=== PATIENT | female | born 1995 | race Two or more races ===

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

== ENCOUNTER 2017-05-01 18:59 | Emergency (ER) | payer OTHER ==
--- NOTE | 2017-05-01 19:58 | RAD ---
INDICATION: Cough COMPARISON: None TECHNIQUE: PA and lateral dual-energy views were obtained. FINDINGS: Bones/Soft Tissues: There are no acute bony findings. Cardiomediastinal: The cardiomediastinal silhouette is normal. Lungs: There are no infiltrates. Pleura: There are no pleural effusions. Other: None IMPRESSION: NORMAL STUDY.
[2017-05-01 20:44] VITALS: BP 105/62
--- NOTE | 2017-05-02 03:55 | ED ---
Luba Torres Edward, scribed for Ariadna Beach MD on 05/01/17 at 1921 . Respiratory - HPI Summary HPI Summary: 21 y/o female presents to the ED c/o nonproductive cough for the past week. Pt states she feels like there is something there when she coughs but that it can' t get out. Denies fevers/chills. Denies sick contact. Pt was seen 4 days ago in the ED and given prednisone and an inhaler. Pt states these did not alleviate her symptoms. No relevant PMHx, Sx. Pt is a smoker. Associated sx: intermittent ear ache, CP with cough. - History of Current Complaint Chief Complaint: EDUpperRespComplaint Stated Complaint: CONGESTION/COUGH Hx Obtained From: Patient Onset/Duration: Lasting Days, Still Present Timing: Intermittent Episodes Lasting: - cough Character: Cough (Nonproductive) Sputum Amount: None Aggravating Factor(s): Nothing Alleviating Factor(s): Nothing Associated Signs and Symptoms: Chest Pain with Cough - Allergy/Home Medications Allergies/Adverse Reactions: Allergies Allergy/AdvReac Type Severity Reaction Status Date / Time No Known Allergies Allergy Verified 05/01/17 19:08 PMH/Surg Hx/FS Hx/Imm Hx Previously Healthy: No Endocrine/Hematology History: Denies: Hx Diabetes, Hx Thyroid Disease Cardiovascular History: Denies: Hx Hypertension, Hx Pacemaker/ICD Respiratory History: Reports: Hx Asthma - WHEN YOUNGER Denies: Hx Chronic Obstructive Pulmonary Disease (COPD) GI History: Denies: Hx Ulcer Sensory History: Denies: Hx Hearing Aid Psychiatric History: Denies: Hx Panic Disorder Infectious Disease History: No Infectious Disease History: Denies: Hx Hepatitis, Hx Human Immunodeficiency Virus (HIV), History Other Infectious Disease, Traveled Outside the [place] in Last 30 Days - Family History Known Family History: Positive: None, Hypertension, Diabetes Family History: negative for family hx of glaucoma,vision defecits - Social History Alcohol Use: None Substance Use Type: Reports: Marijuana Substance Use Comment - Amount & Last Used: occasional Smoking Status (MU): Never Smoked Tobacco Review of Systems Constitutional: Negative Eyes: Negative Positive: Ear Ache Positive: Chest Pain - with cough Positive: Cough Gastrointestinal: Negative Genitourinary: Negative Musculoskeletal: Negative Skin: Negative Neurological: Negative Psychological: Normal All Other Systems Reviewed And Are Negative: No Physical Exam - Summary Physical Exam Summary: Appearance: Alert, conversive, nontoxic appearing Skin: Warm, dry, no mottling, no rashes, no contusions HEENT: EOMI, PERRL, moist mucous membranes Neck: No masses on the neck, supple Respiratory: Clear to auscultation, breath sounds present, no rales, no rhonchi , no wheezes Cardiovascular: RRR, pulses are symmetrical in both lower and upper extremities Abdomen: Soft, non-tender Bowel Sounds: Present Musculoskeletal: No CVA tenderness, no obvious deformity, moving all extremities in a grossly normal manner Neurological: A&Ox3, CN II-XII Intact, moving all extremities symmetrically Psychiatric: Normal affect and mood Triage Information Reviewed: Yes Vital Signs On Initial Exam: Initial Vitals Temp Pulse Resp BP Pulse Ox 97.9 F 59 18 118/42 99 05/01/17 19:05 05/01/17 19:05 05/01/17 19:05 05/01/17 19:05 05/01/17 19:05 Vital Signs Reviewed: Yes Diagnostics - Vital Signs Vital Signs Temp Pulse Resp BP Pulse Ox 05/01/17 19:05 97.9 F 59 18 118/42 99 - Laboratory Lab Statement: Any lab studies that have been ordered have been reviewed, and results considered in the medical decision making process. - Radiology CXR Xray Interpretation: No Acute Changes Radiology Interpretation Completed By: Radiologist - ED physician reviews and agrees Re-Evaluation - Re-Evaluation 1 Re-Evaluation Time: 20:26 Comment: Discuss CXR results, plan to d/c Disposition - Course Assessment/Plan: 21 y/o female presents to the ED c/o nonproductive cough for the past week. Pt states she feels like there is something there when she coughs but that it can't get out. Denies fevers/chills. Denies sick contact. Pt was seen 4 days ago in the ED and given prednisone and an inhaler. Pt states these did not alleviate her symptoms. No relevant PMHx, Sx. Pt is a smoker. Associated sx: intermittent ear ache, CP with cough. CXR negative. - Diagnoses Provider Diagnoses: Bronchitis Discharge - Discharge Plan Condition: Stable Disposition: HOME Patient Education Materials: Acute Bronchitis (ED) Referrals: Magdaleno Duque NP [Primary Care Provider] - 3 Days Additional Instructions: Continue to take the steroids as previously instructed. Use the inhaler and spacer as instructed. return if worse or any new symptoms. It is important to follow up with your primary care physician. Take tylenol or motrin for pain. The documentation as recorded by the Luba samano Edward accurately reflects the service I personally performed and the decisions made by , Ariadna Beach MD.
== END 2017-05-01 20:43 | disposition home or self-care (01) ==
LOC: ED 18:59
DX: J40 Bronchitis, not specified as acute or chronic (principal); R05 Cough; R07.9 Chest pain, unspecified; H92.09 Otalgia, unspecified ear
CPT/HCPCS: 71020; 99282

== ENCOUNTER 2017-09-01 13:00 | Emergency (ER) | payer OTHER ==
[2017-09-01] MEDS ORDERED: Ondansetron TAB* 4 MG PO ONE (13:18)
--- NOTE | 2017-09-01 13:24 | UC ---
UC General HPI - HPI Summary HPI Summary: 22 yo BF c/o nausea and crampy diarrhea associated with chills and left periumbilical pain since last night. Has a houseguest with a dx of gastroenteritis last night,with n/v/d. Denies URI sx - History of Current Complaint Chief Complaint: UCGI Stated Complaint: NAUGSEA,DIZZY Time Seen by Provider: 09/01/17 13:11 Hx Obtained From: Patient Hx Last Menstrual Period: 08/27/17 Onset/Duration: Sudden Onset Onset Severity: Severe Current Severity: Moderate Pain Intensity: 5 - Allergy/Home Medications Allergies/Adverse Reactions: Allergies Allergy/AdvReac Type Severity Reaction Status Date / Time No Known Allergies Allergy Verified 09/01/17 13:08 PMH/Surg Hx/FS Hx/Imm Hx Previously Healthy: Yes - Surgical History Surgical History: None - Family History Known Family History: Positive: None, Hypertension, Diabetes Family History: negative for family hx of glaucoma,vision defecits - Social History Alcohol Use: Occasionally Substance Use Type: Marijuana Substance Use Comment - Amount & Last Used: regularly Smoking Status (MU): Never Smoked Tobacco Review of Systems Constitutional: Chills Skin: Negative Eyes: Negative ENT: Negative Respiratory: Negative Cardiovascular: Negative Gastrointestinal: Abdominal Pain, Diarrhea, Nausea Genitourinary: Negative Motor: Negative Neurovascular: Negative Musculoskeletal: Negative Neurological: Negative Psychological: Negative All Other Systems Reviewed And Are Negative: Yes Physical Exam Triage Information Reviewed: Yes Vital Signs: Initial Vital Signs Temp 36.1 C 09/01/17 13:03 Pulse 72 09/01/17 13:03 Resp 16 09/01/17 13:03 BP 135/82 09/01/17 13:03 Pulse Ox 98 09/01/17 13:03 Vital Signs Reviewed: Yes Eye Exam: Normal ENT Exam: Normal ENT: Positive: Pharynx normal Dental Exam: Normal Neck exam: Normal Neck: Positive: 1 Respiratory Exam: Normal Cardiovascular Exam: Normal Abdomen Description: Positive: Soft, CVA Tenderness (L), Other: - left upper and lower wanda-umbilical tenderness. Negative: Distended, Guarding Musculoskeletal Exam: Normal Neurological Exam: Normal Psychological Exam: Normal Skin Exam: Normal Skin: Positive: Other Course/Dx - Course Course Of Treatment: rapid strep and rapid flu negative. Current sx likely due to virally mediated gastroenteritis. PO hydration, PO zofran and continue supportive tx - Differential Dx - Multi-Symptom Provider Diagnoses: viral gastroenteritis Discharge - Discharge Plan Condition: Stable Disposition: HOME Prescriptions: Ondansetron TAB* [Zofran 4 MG Tab*] 4 mg PO Q6H PRN 3 Days #12 tab PRN Reason: Nausea Patient Education Materials: Gastroenteritis (ED), Viral Syndrome (ED) Referrals: No Primary Care Phys,NOPCP [Primary Care Provider] - Additional Instructions: Keep hydrated, take immodium over the counter if diarrhea continues, take zofran as directed for nausea
[2017-09-01] MEDS ORDERED: Ondansetron ODT TAB* 4 MG PO ONE (13:34)
[2017-09-01 15:15] VITALS: BP 117/80
== END 2017-09-01 15:14 | disposition home or self-care (01) ==
LOC: UCEAST 13:00
DX: A08.4 Viral intestinal infection, unspecified (principal)
CPT/HCPCS: 87502; 87651; 99212; A9270-GY; G0463

== ENCOUNTER 2018-03-02 21:51 | Emergency (ER) | payer OTHER ==
[2018-03-02 22:01] VITALS: BP 136/87
--- NOTE | 2018-03-02 22:02 | UC ---
Abdominal Pain Female HPI - HPI Summary HPI Summary: 22 yo female presents with RLQ pain that began suddenly about 4 hours ago. Since that time pain has increased from a 2/10 to a 7/10 and she has developed nausea. She also notes that over the last few days she has had loose stools and diarrhea. Denies fever, chills, vomiting, dysuria, vaginal discharge, or chance of . - History of Current Complaint Chief Complaint: UCAbdominalPain Stated Complaint: ABDOMINAL PAIN Time Seen by Provider: 03/02/18 22:02 Hx Obtained From: Patient Hx Last Menstrual Period: February 06, 2018 Onset/Duration: Sudden Onset Severity Initially: Moderate Severity Currently: Moderate Pain Intensity: 7 Pain Scale Used: 0-10 Numeric Allergies/Adverse Reactions: Allergies Allergy/AdvReac Type Severity Reaction Status Date / Time No Known Allergies Allergy Verified 03/02/18 21:56 PMH/Surg Hx/FS Hx/Imm Hx - Additional Past Medical History Additional PMH: None - Surgical History Surgical History: None - Family History Known Family History: Positive: None, Hypertension, Diabetes Family History: negative for family hx of glaucoma,vision defecits - Social History Occupation: Employed Full-time Lives: With Family Alcohol Use: Occasionally Substance Use Type: None Substance Use Comment - Amount & Last Used: occasional Smoking Status (MU): Never Smoked Tobacco Type: Smokeless Tobacco Review of Systems Constitutional: Negative Skin: Negative Respiratory: Negative Cardiovascular: Negative Gastrointestinal: Abdominal Pain, Nausea Genitourinary: Negative Neurovascular: Negative Neurological: Negative Psychological: Negative All Other Systems Reviewed And Are Negative: Yes Physical Exam - Summary Physical Exam Summary: GENERAL: NAD. WDWN. No pain distress. SKIN: No rashes, sores, lesions, or open wounds. NECK: Supple. Nontender. No lymphadenopathy. CHEST: CTAB. No r/r/w. No accessory muscle use. Breathing comfortably and in no distress. CV: RRR. Without m/r/g. Pulses intact. Cap refill <2seconds ABDOMEN: Moderate TTP RLQ. Positive psoas sign. Positive heel strike. Negative rovsings. Soft. No distention or guarding. No CVA tenderness. Bowel sounds present NEURO: Alert. PSYCH: Age appropriate behavior. Triage Information Reviewed: Yes Vital Signs: Initial Vital Signs Temp 97.4 F 03/02/18 21:54 Pulse 80 03/02/18 21:54 Resp 18 03/02/18 21:54 BP 136/87 03/02/18 21:54 Pulse Ox 95 03/02/18 21:54 Vital Signs Reviewed: Yes Abd Pain Female Course/Dx - Course Course Of Treatment: Her symptoms are concerning for appendicitis - therefore I have advised the pt to be more appropriately evaluated in the ED. Pt declined ambulance and her friend with her today will drive her tonight. - Differential Dx/Diagnosis Provider Diagnoses: RLQ pain. Nausea Discharge - Sign-Out/Discharge Documenting (check all that apply): Patient Departure All imaging exams completed and their final reports reviewed: No Studies - Discharge Plan Condition: Stable Disposition: HOME-RECOMMEND TO ED Referrals: No Primary Care Phys,NOPCP [Primary Care Provider] - Additional Instructions: Please go to the ER for further evaluation of your RLQ pain and nausea. - Billing Disposition and Condition Condition: STABLE Disposition: Home-Recommend to ED
== END 2018-03-02 22:11 | disposition home health service (06) ==
LOC: UCEAST 21:51
DX: R10.31 Right lower quadrant pain (principal); R11.0 Nausea
CPT/HCPCS: 99212; G0463

== ENCOUNTER 2018-03-02 22:29 | Emergency (ER) | payer OTHER ==
[2018-03-02] MEDS ORDERED: Ondansetron INJ* 2 MG/ML VIAL IV PRN (23:06)
[2018-03-02] MEDS ORDERED: Morphine VIAL* 10 MG/ML 1 ML VIAL IV ONE (23:06)
[2018-03-02] MEDS ORDERED: NS 0.9% 1000 ML* 1,000 ML IV ONE (23:06)
--- NOTE | 2018-03-02 23:36 | ED ---
Abdominal Pain/Female - HPI Summary HPI Summary: Patient sent from urgent care to ED for further evaluation of right lower quadrant pain 2 hours, with associated nausea, no vomiting. Abdominal pain described as sharp, 9 out of 10, constant. Denies prior history of same pain. Denies fever, cough, sore throat, CP, SOB, V/D, change in urine, vaginal symptoms. Medical history is none. Abdominal/pelvic surgical history is none. LMP 02/06. Patient uses protection. - History of Current Complaint Chief Complaint: EDAbdPain Stated Complaint: LOWER RT ABD PAIN Time Seen by Provider: 03/02/18 22:53 Hx Obtained From: Patient Hx Last Menstrual Period: February 06, 2018 ?: No Onset/Duration: Sudden Onset Timing: Constant Severity Initially: Moderate Severity Currently: Moderate Pain Intensity: 7 Pain Scale Used: 0-10 Numeric Location: Discrete At: RLQ Radiates: No Character: Sharp Aggravating Factor(s): Nothing Alleviating Factor(s): Nothing Associated Signs and Symptoms: Positive: Decreased Appetite, Nausea Allergies/Adverse Reactions: Allergies Allergy/AdvReac Type Severity Reaction Status Date / Time No Known Allergies Allergy Verified 03/02/18 21:56 Home Medications: Home Medications NK [No Home Medications Reported] 03/03/18 [History Confirmed 03/03/18] PMH/Surg Hx/FS Hx/Imm Hx Endocrine/Hematology History: Denies: Hx Diabetes, Hx Thyroid Disease Cardiovascular History: Denies: Hx Hypertension, Hx Pacemaker/ICD Respiratory History: Reports: Hx Asthma - WHEN YOUNGER Denies: Hx Chronic Obstructive Pulmonary Disease (COPD) GI History: Denies: Hx Ulcer History: Denies: Hx Dialysis Sensory History: Denies: Hx Hearing Aid Neurological History: Denies: Hx CVA Psychiatric History: Denies: Hx Panic Disorder Infectious Disease History: No Infectious Disease History: Denies: Hx Hepatitis, Hx Human Immunodeficiency Virus (HIV), History Other Infectious Disease, Traveled Outside the [place] in Last 30 Days - Family History Known Family History: Positive: None, Hypertension, Diabetes Family History: negative for family hx of glaucoma,vision defecits - Social History Alcohol Use: Occasionally Substance Use Type: Reports: None Substance Use Comment - Amount & Last Used: occasional Smoking Status (MU): Never Smoked Tobacco Type: Smokeless Tobacco Review of Systems Constitutional: Negative Eyes: Negative ENT: Negative Cardiovascular: Negative Respiratory: Negative Positive: Abdominal Pain, Nausea Genitourinary: Negative Musculoskeletal: Negative Skin: Negative Neurological: Negative Psychological: Normal All Other Systems Reviewed And Are Negative: Yes Physical Exam - Summary Physical Exam Summary: Tender to palpation right lower quadrant. Abdomen otherwise normal exam. Triage Information Reviewed: Yes Vital Signs On Initial Exam: Initial Vitals Temp Pulse Resp BP Pulse Ox 97.7 F 60 18 134/75 95 03/02/18 22:34 03/02/18 22:34 03/02/18 22:34 03/02/18 22:34 03/02/18 22:34 Vital Signs Reviewed: Yes Appearance: Positive: Well-Appearing Skin: Positive: Warm Head/Face: Positive: Normal Head/Face Inspection Eyes: Positive: Normal Neck: Positive: Supple Respiratory/Lung Sounds: Positive: Clear to Auscultation Cardiovascular: Positive: Normal Abdomen Description: Positive: Other: Musculoskeletal: Positive: Normal Neurological: Positive: Normal Psychiatric: Positive: Normal AVPU Assessment: Alert - Kennedy Coma Scale Best Eye Response: 4 - Spontaneous Best Motor Response: 6 - Obeys Commands Best Verbal Response: 5 - Oriented Coma Scale Total: 15 Diagnostics - Vital Signs Vital Signs Temp Pulse Resp BP Pulse Ox 03/02/18 23:00 57 95 03/02/18 22:48 62 137/76 94 03/02/18 22:34 97.7 F 60 18 134/75 95 - Laboratory Result Diagrams: 03/02/18 23:48 03/02/18 23:48 Lab Statement: Any lab studies that have been ordered have been reviewed, and results considered in the medical decision making process. - Ultrasound No standard instances Ultrasound Interpretation: No Acute Changes - US TV neg for torsion Ultrasound Interpretation Completed By: Radiologist Abdominal Pain Fem Course/Dx - Course Course Of Treatment: Patient sent from urgent care to ED for further evaluation of right lower quadrant pain 2 hours, with associated nausea, no vomiting. Abdominal pain described as sharp, 9 out of 10, constant. Denies prior history of same pain. Denies fever, cough, sore throat, CP, SOB, V/D, change in urine, vaginal symptoms. Medical history is none. Abdominal/pelvic surgical history is none. LMP 8/20. Patient uses protection. Physical exam:Tender to palpation right lower quadrant. Abdomen otherwise normal exam. Vital signs normal. Labs unremarkable. Ultrasound transvaginal negative. Not . CT abdomen and pelvis negative. - Diagnoses Provider Diagnoses: Abdominal pain Discharge - Sign-Out/Discharge Documenting (check all that apply): Sign-Out Patient Signing out patient TO: Mark Cisneros - Discharge Plan Condition: Good Disposition: HOME Patient Education Materials: Acute Abdominal Pain (ED) Referrals: Care [facility] [Outside] - Billing Disposition and Condition Condition: GOOD Disposition: Home
[2018-03-03 00:25] LABS: EGFR Non-African American 70.7 (>60)
[2018-03-03 00:28] LABS: ABS Basophils 0.1 10^3/ul (0-0.2); ABS Eosinophils 0.1 10^3/ul (0-0.6); ABS Lymphocytes 2.2 10^3/ul (1.0-4.8); ABS Monocytes 0.5 10^3/ul (0-0.8); ABS Neutrophils 2.4 10^3/ul (1.5-7.7); ABS Nucleated RBC 0 10^3/ul; Eosinophil % 1.5 % (0-6); Hematocrit 38 % (35-47); Hemoglobin 12.7 g/dl (12.0-16.0); Lymphocyte % 41.2 % (25-47); Mean Corpuscular HGB Conc 33 g/dl (31-36); Mean Corpuscular Hemoglobin 27 pg (27-31); Mean Corpuscular Volume 82 fL (80-97); Mean Platelet Volume 8.7 um3 (7.4-10.4); Nucleated Red Blood Cells % 0.1; Platelet Count 300 10^3/ul (150-450); Red Cell Distribution Width 13 % (10.5-15); White Blood Count 5.2 10^3/ul (3.5-10.8)
[2018-03-03] MEDS ORDERED: Iohexol 300* (CONTRAST) 10 ML SDV IV ONE (00:37)
--- NOTE | 2018-03-03 00:55 | RAD ---
EXAM: US Pelvis, Transvaginal CLINICAL HISTORY: 22 years old, female; Pain; Pelvic pain; Additional info: Sudden onset constnat rlq pain, torsion? TECHNIQUE: Real-time transvaginal pelvic ultrasound (complete) with image documentation. Transvaginal imaging was used for better evaluation of the endometrium and adnexa. COMPARISON: No relevant prior studies available. FINDINGS: Uterus/cervix: Uterus measures 7.6 x 3.3 x 2.9 cm. Endometrium measures 3.1 mm. No myometrial mass. Right ovary: Right ovary measures 4.0 x 3.0 x 2.3 cm. Dominant cyst present measuring 1.8 x 1.6 x 1.6 cm. Normal blood flow. Left ovary: Left ovary measures 1.9 x 1.4 x 1.3 cm. Normal blood flow. Free fluid: No free fluid. Bladder: Empty bladder which cannot be evaluated with this probe. IMPRESSION: 1. Right ovarian cyst. 2. Otherwise normal pelvic ultrasound. Specifically, no sonographic findings of torsion.
[2018-03-03 01:07] LABS: Urine Appearance Clear; Urine Blood Negative (Negative); Urine Color Yellow; Urine Ketones Trace (Negative); Urine Protein Negative (Negative); Urine Specific Gravity 1.025 (1.010-1.030); Urine Urobilinogen Negative (Negative)
[2018-03-03] MEDS ORDERED: Ondansetron ODT TAB* 4 MG PO ONE (02:06)
--- NOTE | 2018-03-03 03:06 | RAD ---
EXAM: CT Abdomen and Pelvis With Intravenous Contrast CLINICAL HISTORY: 22 years old, female; Pain; Abdominal pain; Localized; Right lower quadrant (rlq); Additional info: Rlq pain TECHNIQUE: Axial computed tomography images of the abdomen and pelvis with intravenous contrast. All CT scans at this facility use at least one of these dose optimization techniques: automated exposure control; mA and/or kV adjustment per patient size (includes targeted exams where dose is matched to clinical indication); or iterative reconstruction. Coronal and sagittal reformatted images were created and reviewed. CONTRAST: 130 mL of omni administered intravenously. COMPARISON: TRANS US TRANSVAGINAL 03/02/2018 11:22 PM FINDINGS: Lung bases: Unremarkable. No mass. No consolidation. ABDOMEN: Liver: Diffuse fatty infiltration of liver. Gallbladder and bile ducts: Unremarkable. No calcified stones. No ductal dilation. Pancreas: Unremarkable. No mass. No ductal dilation. Spleen: Unremarkable. No splenomegaly. Adrenals: Unremarkable. No mass. Kidneys and ureters: Unremarkable. No solid mass. No hydronephrosis. Stomach and bowel: Unremarkable. No obstruction. No mucosal thickening. PELVIS: Appendix: No findings to suggest acute appendicitis. Bladder: Unremarkable. No mass. Reproductive: Dominant follicle versus cyst in the right ovary measuring 14 x 15 x 18 mm. The uterus and left ovary are unremarkable. ABDOMEN and PELVIS: Intraperitoneal space: Unremarkable. No free air. No significant fluid collection. Bones/joints: No acute fracture. No dislocation. Soft tissues: Unremarkable. Vasculature: Unremarkable. No abdominal aortic aneurysm. Lymph nodes: Unremarkable. No enlarged lymph nodes. IMPRESSION: No acute findings. Dominant follicle versus cyst in the right ovary measuring 14 x 15 x 18 mm.
--- NOTE | 2018-03-03 03:22 | ED ---
Course/Dx - Course Course Of Treatment: Patient sent from urgent care to ED for further evaluation of right lower quadrant pain 2 hours, with associated nausea, no vomiting. Abdominal pain described as sharp, 9 out of 10, constant. Denies prior history of same pain. Denies fever, cough, sore throat, CP, SOB, V/D, change in urine, vaginal symptoms. Medical history is none. Abdominal/pelvic surgical history is none. LMP 8/20. Patient uses protection. Physical exam:Tender to palpation right lower quadrant. Abdomen otherwise normal exam. Vital signs normal. Labs unremarkable. Ultrasound transvaginal negative. Not . - Diagnoses Provider Diagnoses: Abdominal pain Discharge - Sign-Out/Discharge Documenting (check all that apply): Patient Departure - Discharge Plan Condition: Good Disposition: HOME Patient Education Materials: Acute Abdominal Pain (ED) Referrals: [facility] [Outside] - Billing Disposition and Condition Condition: GOOD Disposition: Home
--- NOTE | 2018-03-03 03:24 | ED ---
Progress - Results/Orders Results/Orders: CT A/P: No acute findings. Dominant follicle versus cyst in the right ovary measuring 14 x [address] Cisneros has reviewed this report. Course/Dx - Course Course Of Treatment: Patient sent from urgent care to ED for further evaluation of right lower quadrant pain 2 hours, with associated nausea, no vomiting. Abdominal pain described as sharp, 9 out of 10, constant. Denies prior history of same pain. Denies fever, cough, sore throat, CP, SOB, V/D, change in urine, vaginal symptoms. Medical history is none. Abdominal/pelvic surgical history is none. LMP 02/06. Patient uses protection. Physical exam:Tender to palpation right lower quadrant. Abdomen otherwise normal exam. Vital signs normal. Labs unremarkable. Ultrasound transvaginal negative. Not . - Diagnoses Provider Diagnoses: Abdominal pain Discharge - Sign-Out/Discharge Documenting (check all that apply): Patient Departure - discharge, Receiving Sign-Out Receiving patient FROM: Misael Noriega - Discharge Plan Condition: Good Disposition: HOME Patient Education Materials: Acute Abdominal Pain (ED) Referrals: [facility] [Outside] - Attestation Statements Document Initiated by Scribe: Yes Documenting Scribe: Lefty Chapa Provider For Whom Scribe is Documenting (Include Credential): Dr. Mark Cisneros MD Scribe Attestation: Lefty Torres scribed for Dr. Mark Cisneros MD on 03/03/18 at 0326.
[2018-03-03] MEDS ORDERED: Acetaminophen TAB* 325 MG ONE (03:38)
[2018-03-03 03:43] VITALS: BP 122/74
== END 2018-03-03 03:41 | disposition home or self-care (01) ==
LOC: ED 22:29
DX: R10.31 Right lower quadrant pain (principal)
CPT/HCPCS: 36415; 74177; 76830; 80053; 81003; 83690; 84702; 85025; 86140; 96374; 99283; A9270-GY; J2270; J2405; Q9967

== ENCOUNTER 2018-03-05 02:41 | Emergency (ER) | payer OTHER ==
[2018-03-05] MEDS ORDERED: Naproxen TAB* 250 MG PO ONE (03:10)
--- NOTE | 2018-03-05 03:22 | ED ---
Abdominal Pain/Female - HPI Summary HPI Summary: This patient is a 22 year old F presenting to [facility] with a chief complaint of RLQ abdominal pain since 3 days ago. The patient was seen at [facility] on 03/02/18 with similar symptoms. The patient reports that her symptoms have not worsened since she was discharged. The patient rates the pain 8/10 in severity. Symptoms aggravated by nothing. Symptoms alleviated by nothing. Patient reports fever, nausea, headache, myalgia, and dizziness. Patient denies vomiting, dysuria, or hematuria. LNMP was 2 weeks ago. Patient notes she has been taking ibuprofen for the pain. - History of Current Complaint Chief Complaint: EDAbdPain Stated Complaint: ABD PAIN Time Seen by Provider: 03/05/18 03:06 Hx Obtained From: Patient Hx Last Menstrual Period: February 06, 2018 Onset/Duration: Gradual Onset, Lasting Days - 3 days, Still Present Timing: Constant Severity Initially: Moderate Severity Currently: Moderate Pain Intensity: 8 Pain Scale Used: 0-10 Numeric Location: Discrete At: RLQ Radiates: No Aggravating Factor(s): Nothing Alleviating Factor(s): Nothing Associated Signs and Symptoms: Positive: Fever, Nausea. Negative: Urinary Symptoms, Vomiting Allergies/Adverse Reactions: Allergies Allergy/AdvReac Type Severity Reaction Status Date / Time No Known Allergies Allergy Verified 03/05/18 02:49 PMH/Surg Hx/FS Hx/Imm Hx Endocrine/Hematology History: Denies: Hx Diabetes, Hx Thyroid Disease Cardiovascular History: Denies: Hx Hypertension, Hx Pacemaker/ICD Respiratory History: Reports: Hx Asthma - WHEN YOUNGER Denies: Hx Chronic Obstructive Pulmonary Disease (COPD) GI History: Denies: Hx Ulcer History: Denies: Hx Dialysis Sensory History: Denies: Hx Hearing Aid Neurological History: Denies: Hx CVA Psychiatric History: Denies: Hx Panic Disorder Infectious Disease History: No Infectious Disease History: Denies: Hx Hepatitis, Hx Human Immunodeficiency Virus (HIV), History Other Infectious Disease, Traveled Outside the [place] in Last 30 Days - Family History Known Family History: Positive: Hypertension, Diabetes Family History: negative for family hx of glaucoma,vision defecits - Social History Alcohol Use: Occasionally Substance Use Type: Reports: None Substance Use Comment - Amount & Last Used: occasional Smoking Status (MU): Never Smoked Tobacco Type: Smokeless Tobacco Review of Systems Positive: Fever Positive: Abdominal Pain, Nausea. Negative: Vomiting Negative: dysuria, hematuria Positive: Myalgia Neurological: Other - dizziness Positive: Headache All Other Systems Reviewed And Are Negative: Yes Physical Exam - Summary Physical Exam Summary: Appearance: Well-appearing, Well-nourished, lying in bed comfortably Skin: Warm, dry, no obvious rash Eyes: sclera anicteric, no conjunctival pallor ENT: mucous membranes moist, pharynx appears normal Neck: Supple, nontender Respiratory: Clear to auscultation, no signs of respiratory distress Cardiovascular: Normal S1, S2. No murmurs. Normal distal pulses in tibial and radial bilaterally. Abdomen: Soft, Mild RLQ tenderness, no rebound, no guarding, normal active bowel sounds present Musculoskeletal: Normal, Strength/ROM Intact Neurological: A&Ox3, awake and alert, mentation is normal, speech is fluent and appropriate Psychiatric: affect is normal, does not appear anxious or depressed Triage Information Reviewed: Yes Vital Signs On Initial Exam: Initial Vitals Temp Pulse Resp BP Pulse Ox 98.4 F 92 16 134/80 95 03/05/18 02:46 03/05/18 02:46 03/05/18 02:46 03/05/18 02:46 03/05/18 02:46 Vital Signs Reviewed: Yes Diagnostics - Vital Signs Vital Signs Temp Pulse Resp BP Pulse Ox 03/05/18 02:46 98.4 F 92 16 134/80 95 - Laboratory Result Diagrams: 03/05/18 03:17 Lab Statement: Any lab studies that have been ordered have been reviewed, and results considered in the medical decision making process. Abdominal Pain Fem Course/Dx - Course Course Of Treatment: This is a 22-year-old woman with a several day history of right lower quadrant abdominal pain. On prior visits she is ready had a fairly extensive diagnostic evaluation including pelvic ultrasound and CT scan of the abdomen and pelvis. The only finding of note is a small right ovarian cyst. She returns now with persistent pain. It is really no better or worse, and there are no other interval changes in her symptoms. Her abdominal exam is quite benign. I suspect her pain is related to ovarian cyst or mittelschmerz and will attempt different medications to see if we can make her feel better. - Diagnoses Provider Diagnoses: Mittelschmerz Discharge - Sign-Out/Discharge Documenting (check all that apply): Patient Departure - Discharge Plan Condition: Good Disposition: HOME Prescriptions: Naproxen [Naprosyn 500 mg tab] 500 mg PO BID PRN #20 tablet PRN Reason: Pain Patient Education Materials: Jacinta (ED) Referrals: Sam Henderson MD [Medical Doctor] - 3 Days (if not better) - Attestation Statements Document Initiated by Scribe: Yes Documenting Scribe: Maris Marvin Provider For Whom Scribe is Documenting (Include Credential): Mark Cisneros MD Scribe Attestation: Maris Torres, scribed for Mark Cisneros MD on 03/05/18 at 0420.
[2018-03-05 03:30] LABS: ABS Basophils 0 10^3/ul (0-0.2); ABS Eosinophils 0 10^3/ul (0-0.6); ABS Lymphocytes 1.2 10^3/ul (1.0-4.8); ABS Monocytes 0.6 10^3/ul (0-0.8); ABS Neutrophils 4.9 10^3/ul (1.5-7.7); ABS Nucleated RBC 0 10^3/ul; Eosinophil % 0.6 % (0-6); Hematocrit 38 % (35-47); Hemoglobin 12.4 g/dl (12.0-16.0); Lymphocyte % 17.4 % (25-47); Mean Corpuscular HGB Conc 33 g/dl (31-36); Mean Corpuscular Hemoglobin 27 pg (27-31); Mean Corpuscular Volume 82 fL (80-97); Mean Platelet Volume 8.3 um3 (7.4-10.4); Nucleated Red Blood Cells % 0; Platelet Count 275 10^3/ul (150-450); Red Blood Count 4.55 10^6/ul (4.00-5.40); Red Cell Distribution Width 13 % (10.5-15); White Blood Count 6.7 10^3/ul (3.5-10.8)
[2018-03-05 03:36] LABS: Urine Appearance Clear; Urine Blood Negative (Negative); Urine Color Yellow; Urine Ketones 1+ (Negative); Urine Protein 1+(30 mg/dL) (Negative); Urine Red Blood Cell Trace(0-2/hpf) (Absent); Urine Specific Gravity 1.023 (1.010-1.030); Urine Urobilinogen Negative (Negative); Urine White Blood Cell Trace(0-5/hpf) (Absent)
[2018-03-05 04:30] VITALS: BP 117/49
== END 2018-03-05 04:29 | disposition home or self-care (01) ==
LOC: ED 02:41
CPT/HCPCS: 36415; 81003; 81015; 85025; 87086; A9270-GY

== ENCOUNTER 2019-09-12 11:08 | Emergency (ER) | payer OTHER ==
--- NOTE | 2019-09-12 11:11 | UC ---
Throat Pain/Nasal [place] HPI - HPI Summary HPI Summary: 24 yo female presents with sore throat. She tells me that yesterday she developed a sore throat that is persisting into today. She has not taken anything OTC for her symptoms. Hurts to swallow. She was at the [facility] through clinic earlier today and swab was obtained, but was told to come be evaluated for her sore throat. She is eating, drinking, and tolerating po well. Denies fever, chills, sinus symptoms, cough, SOB. No exposure to known positive COVID. No recent travel. - History of Current Complaint Stated Complaint: EAR PAIN BODYACHES FEVER SORE THROAT Time Seen by Provider: 09/12/19 11:11 Hx Obtained From: Patient Hx Last Menstrual Period: February 06, 2018 Onset/Duration: Sudden Onset Severity: Moderate Pain Intensity: 6 Pain Scale Used: 0-10 Numeric - Allergies/Home Medications Allergies/Adverse Reactions: Allergies Allergy/AdvReac Type Severity Reaction Status Date / Time No Known Allergies Allergy Verified 09/12/19 11:38 Home Medications: Home Medications Naproxen [Naprosyn 500 mg tab] 500 mg PO BID PRN #20 tablet 03/05/18 [Rx] Amoxicillin PO (*) [Amoxicillin 500 MG CAP*] 500 mg PO Q12H #20 cap 09/12/19 [Rx ] PMH/Surg Hx/FS Hx/Imm Hx - Additional Past Medical History Additional PMH: None - Surgical History Surgical History: None - Family History Known Family History: Positive: Hypertension, Diabetes - Social History Lives: With Family Alcohol Use: Occasionally Substance Use Type: None Substance Use Comment - Amount & Last Used: occasional Smoking Status (MU): Never Smoked Tobacco Type: Smokeless Tobacco Review of Systems All Other Systems Reviewed And Are Negative: No Constitutional: Positive: Negative Skin: Positive: Negative Eyes: Positive: Negative ENT: Positive: Sore Throat Respiratory: Positive: Negative Cardiovascular: Positive: Negative Gastrointestinal: Positive: Negative Neurological/Mental Status: Positive: Negative Psychological: Positive: Negative Physical Exam - Summary Physical Exam Summary: GENERAL: NAD. WDWN. No pain distress. SKIN: No rashes, sores, lesions, or open wounds. HEENT: Head: AT/NC Eyes: Conjunctiva clear without inflammation or discharge. Ears: Hearing grossly normal. TMs intact, no bulging, erythema, or edema. Nose: Nasal mucosa pink and moist. NTTP maxillary and frontal sinus. Throat: Posterior oropharynx mild erythema and 2+ tonsillar enlargement. No exudates. Uvula midline. No hoarse voice or muffled voice. NECK: Supple. Mild ttp tonsillar LAD. CHEST: CTAB. No r/r/w. No accessory muscle use. Breathing comfortably and in no distress. CV: RRR. Pulses intact. Cap refill <2seconds NEURO: Alert. PSYCH: Age appropriate behavior. Triage Information Reviewed: Yes Vital Signs: Vital Signs: Temp Pulse Resp BP Pulse Ox 98.0 F 89 18 121/81 98 09/12/19 11:52 09/12/19 11:52 09/12/19 11:52 09/12/19 11:52 09/12/19 11:52 Laboratory Tests 09/12/19 09/12/19 11:19 11:27 Influenza A (Rapid) Negative Influenza B (Rapid) Negative Group A Strep Rapid Positive H Vital Signs Reviewed: Yes Throat Pain/Nasal Course/Dx - Course Course Of Treatment: POC flu negative. POC strep positive. Very low suspicion for COVID. Rx for amoxicillin. Given that she already unwent COVID testing, recommended she adhere to self-isolation guidelines. - Differential Dx/Diagnosis Provider Diagnosis: Strep throat Discharge ED - Sign-Out/Discharge Documenting (check all that apply): Patient Departure All imaging exams completed and their final reports reviewed: No Studies - Discharge Plan Condition: Stable Disposition: HOME Prescriptions: Amoxicillin PO (*) [Amoxicillin 500 MG CAP*] 500 mg PO Q12H #20 cap Patient Education Materials: Strep Throat (ED) Referrals: No Primary Care Phys,NOPCP [Primary Care Provider] - Additional Instructions: If you develop a fever, shortness of breath, chest pain, new or worsening symptoms - please call your PCP or go to the ED immediately. Although your strep test was positive, it seems very unlikely that you have COVID, but you already had testing for COVID therefore; You need to quarantine yourself in a bedroom and bathroom only you are using. You may not leave the house. [facility] will contact you and notify of results when they are available. Advised to be on home isolation until cleared by the health department (3-6 days likely) Go to ED for increased SOB or any difficulty breathing - new or worsening symptoms. - Billing Disposition and Condition Condition: STABLE Disposition: Home
[2019-09-12 11:39] LABS: Influenza A Molecular Negative (Negative); Influenza B Molecular Negative (Negative)
[2019-09-12 11:55] VITALS: BP 121/81
== END 2019-09-12 11:56 | disposition home or self-care (01) ==
LOC: UCEAST 11:08
DX: J02.0 Streptococcal pharyngitis (principal)
CPT/HCPCS: 87651; 99212; G0463

== ENCOUNTER 2024-06-29 23:32 | Inpatient (IN) ==
[2024-06-29] MEDS: Oxytocin 10 UNITS/ML 1 ML VIAL IM ONE (23:57)
[2024-06-30] MEDS: fentaNYL 100 mcg/2 ml 50 MCG/ML VIAL IV SLOW PU ONE (00:12)
[2024-06-30] MEDS ORDERED: Lidocaine 1% VIAL 10 MG/ML 30 ML VIAL INJ PRN (00:34)
[2024-06-30] MEDS ORDERED: Glycerin ADULT 2.4 gm SUPP PR PRN (00:37)
[2024-06-30] MEDS ORDERED: Lactated Ringers 1000 ml BAG 1,000 ML IV SCH (01:00)
[2024-06-30 01:01] LABS: ABS Lymphocytes 0.6 10^3/uL (1.0-4.8); ABS Monocytes 0.9 10^3/uL (0.0-0.9); ABS Neutrophils 11.9 10^3/uL (1.5-7.6); Hematocrit 31.9 % (35-45); Hemoglobin 10.5 g/dL (11.5-14.3); Lymphocyte % 4.6 %; Mean Corpuscular Hemoglobin 26.9 pg (27-33); Mean Corpuscular Hgb Conc 32.9 g/dL (31-36); Mean Corpuscular Volume 81.6 fL (80-97); Mean Platelet Volume 8.8 fL (7.5-11.2); Platelet Count 240 10^3/uL (150-450); Red Blood Count 3.91 10^6/uL (3.63-4.92); Red Cell Distribution Width 13.7 % (12-17); White Blood Count 13.4 10^3/uL (3.8-11.8)
[2024-06-30] MEDS: Oxytocin in LR 20,000 MILLI.UNIT/1,000 ML BAG IV SCH (01:08)
[2024-06-30] MEDS: Lactated Ringers 1000 ml BAG 1,000 ML IV ONE (04:49)
[2024-06-30] MEDS: Buffered Lidocaine 1% SYRIN 1 ml INTRADERM ONE (04:49)
[2024-06-30] MEDS: Oxytocin in LR 20,000 MILLI.UNIT/1,000 ML BAG IV ONE (04:54)
[2024-06-30] MEDS: Oxytocin 10 UNITS/ML 1 ML VIAL ONE (04:54)
[2024-06-30] MEDS: Lactated Ringers 1000 ml BAG 1,000 ML IV SCH (04:55)
[2024-06-30 06:47] LABS: ABS Monocytes 1.5 10^3/uL (0.0-0.9); ABS Neutrophils 13.9 10^3/uL (1.5-7.6); Hematocrit 27.3 % (35-45); Lymphocyte % 6.1 %; Mean Corpuscular Hemoglobin 26.8 pg (27-33); Mean Corpuscular Hgb Conc 32.9 g/dL (31-36); Mean Corpuscular Volume 81.5 fL (80-97); Mean Platelet Volume 8.5 fL (7.5-11.2); Platelet Count 229 10^3/uL (150-450); Red Blood Count 3.35 10^6/uL (3.63-4.92); Red Cell Distribution Width 13.5 % (12-17); White Blood Count 16.4 10^3/uL (3.8-11.8)
[2024-06-30 09:23] LABS: Hepatitis B Surface Antigen Nonreactive (Nonreactive)
[2024-06-30 14:04] LABS: Urine Benzodiazepine Screen None Detected (None Detect); Urine Cannabinoids Screen None Detected (None Detect); Urine Opiates Screen None Detected (None Detect)
[2024-07-01] MEDS: Dibucaine 1% OINT 28.35 GM TUBE PR PRN (07:41)
[2024-07-02 07:41] VITALS: BP 131/87
[2024-07-02] MEDS: Witch Hazel PAD JAR TOPICAL PRN (11:59)
== END 2024-07-02 14:40 | disposition home or self-care (01) | DRG 560 ==
LOC: MCHOBOUT 23:32 → MCHOB 23:38
PROVIDERS: ADMIT Obstetrics & Gynecology; ATTEND Obstetrics & Gynecology